=== PATIENT | male | born 1990 | race African-American/Black ===

== ENCOUNTER 2018-10-27 18:56 | Emergency (ER) | payer MEDICAID ==
[~2018-10-27] VITALS: Ht 177.8 cm; Wt 92.0 kg
[2018-10-27 19:06] VITALS: BP 131/94
== END 2018-10-27 22:28 | disposition left against medical advice (07) ==
LOC: ER 18:56
DX: R42 Dizziness and giddiness (principal); R07.89 Other chest pain; Z53.21 Procedure and treatment not carried out due to patient leaving prior to being seen by health care provider
CPT/HCPCS: 93005